=== PATIENT | female | born 1995 | race African-American/Black ===

== ENCOUNTER 2023-06-28 11:00 | Inpatient (IN) | payer OTHER ==
[2023-06-28] MEDS ORDERED: AMPICILLIN SODIUM 2 GM VIAL ONE (12:12)
[2023-06-28] MEDS: ELECTROLYTE-148 SOLN 1,000 ML IV SCH ×2 (12:15→16:16)
[2023-06-28] MEDS ORDERED: AMPICILLIN - 2 GM in SODIUM CHLORIDE 100 ML IVPB ONE (12:20)
[2023-06-28 12:29] LABS: BASO % 0.3 % (0-2.0); EOS % 0.1 % (0-4.5); HEMATOCRIT 36.6 % (32.4-45.2); HEMOGLOBIN 12.1 GM/dL (10.7-15.3); INR 0.97 (0.83-1.09); LYMPH % 17.1 % (8-40); MCH 24.9 pg (25.7-33.7); MEAN CELL VOLUME 75.3 fl (80-96); MEAN PLT VOLUME 8.7 fl (7.5-11.1); MONO % 8.7 % (3.8-10.2); NEUT % 73.8 % (42.8-82.8); PLATELET COUNT 253 10^3/uL (134-434); PROTHROMBIN TIME (PATIENT) 11.2 SEC (9.7-13.0); RBC 4.86 M/mm3 (3.60-5.2); RDW 15.9 % (11.6-15.6); WHITE BLOOD COUNT 12.8 K/mm3 (4.0-10.0)
[2023-06-28 12:32] LABS: ACTIVATED PTT 25.6 SECONDS (25.2-36.5)
[2023-06-28 12:41] VITALS: BMI 26.1
[2023-06-28 12:45] LABS: POTASSIUM 3.8 mmol/L (3.5-5.1)
[2023-06-28 12:46] LABS: CALCIUM 9.1 mg/dL (8.5-10.1)
[2023-06-28 12:48] LABS: BLOOD UREA NITROGEN 5.9 mg/dL (7-18)
[2023-06-28] MEDS ORDERED: FENTANYL/BUPIVACAINE/NS/PF - PCEA - 50 ML DISP.SYRIN EP ONE (13:09)
[2023-06-28] MEDS: FENTANYL/BUPIVACAINE/NS/PF - PCEA - 50 ML DISP.SYRIN EP SCH (13:30)
[2023-06-28 14:25] LABS: HIV INTERPRETATION NEGATIVE (NEGATIVE)
[2023-06-28] MEDS ORDERED: NALOXONE HCL 0.4 MG/ML VIAL IVPUSH PRN (14:27)
[2023-06-28] MEDS ORDERED: AMPICILLIN SODIUM 1 GM VIAL ONE (15:58)
[2023-06-28] MEDS: AMPICILLIN - 1 GM in SODIUM CHLORIDE 100 ML IVPB SCH (16:16)
[2023-06-28] MEDS ORDERED: LIDOCAINE HCL 1% PRESERVATIVE FREE - 30ML VIAL ONE (18:09)
[2023-06-28] MEDS ORDERED: OXYTOCIN 20 UNITS in 0.9% NS 20 UNIT/1,000 ML INFUS.BAG IV ONE (18:10)
[2023-06-28] MEDS ORDERED: BISACODYL 10 MG SUPP.RECT RC PRN (18:49)
[2023-06-28] MEDS ORDERED: WITCH HAZEL 50% (TUCKS) 40 PAD/JAR PAD TP PRN (18:49)
[2023-06-28] MEDS ORDERED: METHYLERGONOVINE MALEATE 0.2 MG/1 ML AMP IM PRN (18:49)
[2023-06-28] MEDS ORDERED: oxyCODONE HCL 5 MG TABLET PO PRN (18:49)
[2023-06-28] MEDS ORDERED: BENZOCAINE 20% 57 GM BOTTLE TP PRN (18:49)
[2023-06-28] MEDS ORDERED: BENZOCAINE 28 GM HEMORRHOIDAL OINTMENT TP PRN (18:49)
[2023-06-28] MEDS ORDERED: OXYTOCIN 30 UNITS in 0.9% NS 30 UNIT/500 ML INFUS.BAG IVPB ONE (18:56)
[2023-06-28] MEDS ORDERED: OXYTOCIN 20 UNITS in 0.9% NS 20 UNIT/1,000 ML INFUS.BAG IV SCH (19:00)
[2023-06-28] MEDS ORDERED: OXYTOCIN 30 UNITS in 0.9% NS 30 UNIT/500 ML INFUS.BAG IVPB SCH (19:00)
[2023-06-28] MEDS ORDERED: oxyCODONE HCL 5 MG TABLET ONE (20:25)
[2023-06-28] MEDS: IBUPROFEN 600 MG TABLET (FP) PO PRN (23:03)
[2023-06-29 05:40] VITALS: RESP 18
[2023-06-29] MEDS: IBUPROFEN 600 MG TABLET (FP) PO PRN (07:51)
[2023-06-29 09:07] LABS: BASO % 0.3 % (0-2.0); EOS % 0.1 % (0-4.5); HEMATOCRIT 25.2 % (32.4-45.2); LYMPH % 13.1 % (8-40); MCH 24.4 pg (25.7-33.7); MEAN CELL VOLUME 76.5 fl (80-96); MEAN PLT VOLUME 8.6 fl (7.5-11.1); MONO % 7.3 % (3.8-10.2); NEUT % 79.2 % (42.8-82.8); PLATELET COUNT 182 10^3/uL (134-434); RBC 3.29 M/mm3 (3.60-5.2); RDW 15.6 % (11.6-15.6); WHITE BLOOD COUNT 15.6 K/mm3 (4.0-10.0)
[2023-06-29] MEDS: FERROUS SO4 325 MG TABLET (FP) PO SCH (09:57)
[2023-06-29] MEDS: PRENATAL VITAMINS W/ FOLIC ACID TABLET (FP) PO SCH (09:58)
[2023-06-29] MEDS: ACETAMINOPHEN 325 MG TABLET (FP) PO PRN ×2 (14:10→21:44)
[2023-06-29] MEDS: ELECTROLYTE-148 SOLN 1,000 ML IV SCH ×3 (19:53→19:54)
[2023-06-29] MEDS: AMPICILLIN - 1 GM in SODIUM CHLORIDE 100 ML IVPB SCH (19:54)
[2023-06-29] MEDS: FENTANYL/BUPIVACAINE/NS/PF - PCEA - 50 ML DISP.SYRIN EP SCH (19:56)
[2023-06-29] MEDS: SENNOSIDES/DOCUSATE COMBO (SENNA PLUS) TABLET (UD) PO PRN (21:44)
[2023-06-30] MEDS: ACETAMINOPHEN 325 MG TABLET (FP) PO PRN (05:09)
[2023-06-30] MEDS: IBUPROFEN 600 MG TABLET (FP) PO PRN (09:17)
[2023-06-30] MEDS: FERROUS SO4 325 MG TABLET (FP) PO SCH (09:17)
[2023-06-30] MEDS: PRENATAL VITAMINS W/ FOLIC ACID TABLET (FP) PO SCH (09:17)
[2023-06-30] MEDS: SENNOSIDES/DOCUSATE COMBO (SENNA PLUS) TABLET (UD) PO PRN (09:23)
[2023-06-30 09:42] VITALS: BP 98/57; PULSE 80; TEMP 97.8
== END 2023-06-30 11:35 | disposition home or self-care (01) | DRG 807 ==
LOC: JDEL 11:00 → JLDR 11:01 → J3W 21:49
PROVIDERS: ADMIT Obstetrics & Gynecology; ATTEND Obstetrics & Gynecology
PROC: 10E0XZZ Delivery of Products of Conception, External Approach (ICD-10-PCS; principal; 2023-06-28)
PROC: 0HQ9XZZ Repair Perineum Skin, External Approach (ICD-10-PCS; 2023-06-28)
DX: O70.0 First degree perineal laceration during delivery (principal); Z37.0 Single live birth; Z3A.39 39 weeks gestation of pregnancy
CPT/HCPCS: 36415; 80048; 85025; 85610; 85730; 86780; 86850; 86900; 86901; 87389